=== PATIENT | female | born 1935 | race Caucasian/White ===

== ENCOUNTER → 2016-05-13 | Outpatient (CLI) | payer OTHER ==
[~2016-05-13] MED LIST: AMBEREN; ASPIRIN EC81 M1 PO; BENICAR20 MG PO; CO Q-1010 MG PO; FISH OIL 1,4001 EACH PO; FLECAINIDE ACET50 M1 PO; PLAVIX 75 MG TA75 MG PO; SYNTHROID88 MCG PO; TOPROL XL50 MG PO; ZOCOR
== END ==
LOC: RAD 01:04
DX: Z12.31 Encounter for screening mammogram for malignant neoplasm of breast (principal)

== ENCOUNTER → 2017-05-28 | Outpatient (CLI) | payer OTHER | LOC: RAD 01:34 | DX: Z12.31 Encounter for screening mammogram for malignant neoplasm of breast (principal) ==

== ENCOUNTER → 2018-06-09 | Outpatient (CLI) | payer OTHER | LOC: RAD 02:20 | DX: Z12.31 Encounter for screening mammogram for malignant neoplasm of breast (principal) ==

== ENCOUNTER → 2019-06-23 | Outpatient (CLI) | payer OTHER | LOC: RAD 07:43 | DX: Z12.31 Encounter for screening mammogram for malignant neoplasm of breast (principal) ==

== ENCOUNTER → 2020-08-21 | Outpatient (CLI) | payer OTHER | LOC: BC 09:19 | PROVIDERS: ATTEND Family Medicine | DX: Z12.31 Encounter for screening mammogram for malignant neoplasm of breast (principal) ==